=== PATIENT | female | born 1960 | race Caucasian/White ===

== ENCOUNTER 2019-10-10 00:55 | Inpatient (IN) | payer BC, OTHER ==
[~2019-10-10] VITALS: Ht 154.9 cm; Wt 50.0 kg
[2019-10-10] VITALS (12 sets, daily range): BP systolic 99–189; BP diastolic 65–107
[2019-10-10 01:26] LABS: BASOPHILS # (AUTO) 0.1 X10'3 (0-0.2); BASOPHILS % (AUTO) 0.9 % (0-1); EOSINOPHILS % (AUTO) 0.7 % (0-6); HEMATOCRIT 41.8 % (35.0-45.0); HEMOGLOBIN 14.3 g/dl (12.0-16.0); LYMPHOCYTES # (AUTO) 2.6 X10'3 (1.1-4.8); LYMPHOCYTES % (AUTO) 42.2 % (21-51); MEAN CORPUSCULAR HEMOGLOBIN 34.9 PG (27.0-31.0); MEAN CORPUSCULAR HGB CONC 34.3 g/dL (33.0-36.5); MEAN CORPUSCULAR VOLUME 101.8 FL (78-98); MEAN PLATELET VOLUME 8.6 FL (7.4-10.4); MONOCYTES # (AUTO) 0.5 X10'3 (0-0.9); MONOCYTES % (AUTO) 7.7 % (2-12); NEUTROPHILS % (AUTO) 48.5 % (42-75); PLATELET COUNT 140 X10'3 (140-440); RED CELL DISTRIBUTION WIDTH 12.6 % (11.5-14.5); WHITE BLOOD COUNT 6.1 X10'3 (4.5-11.0)
[2019-10-10 01:40] LABS: ALANINE AMINOTRANSFERASE 64 U/L (12-78); ALBUMIN 3.7 G/DL (3.4-5.0); ALBUMIN/GLOBULIN RATIO 0.9 (1.1-1.5); ALKALINE PHOSPHATASE 55 IU/L (46-116); ANION GAP 12 (8-16); ASPARTATE AMINO TRANSFERASE 149 U/L (10-37); BILIRUBIN,TOTAL 0.4 MG/DL (0.1-1.0); BLOOD UREA NITROGEN 10 MG/DL (7-18); BUN/CREATININE RATIO 16.1 (6.6-38.0); CALCIUM 8.8 MG/DL (8.5-10.1); CHLORIDE 104 MMOL/L (99-107); CREATININE 0.62 MG/DL (0.40-0.90); GLUCOSE 111 MG/DL (70-104); POTASSIUM 3.6 MMOL/L (3.5-5.1); SODIUM 141 MMOL/L (135-145); TOTAL CARBON DIOXIDE 24.8 MMOL/L (24-32); TOTAL PROTEIN 7.7 G/DL (6.4-8.2); eGFR > 90 ML/MIN
[2019-10-10] MEDS ORDERED: NO HOME MEDS (01:49)
[2019-10-10] MEDS ORDERED: HYDROcodone/acetaminophen 5mg/325mg tablet PO ONE (01:55)
[2019-10-10] MEDS ORDERED: magnesium hydroxide 30ml (MOM) UD suspension PO PRN (03:35)
[2019-10-10] MEDS ORDERED: acetaminophen 325mg tablet PO PRN (03:35)
[2019-10-10] MEDS ORDERED: ondansetron/PF 4mg/2ml inj IV PRN (03:35)
[2019-10-10] MEDS ORDERED: mag hydrox/Alum hydrox/simeth 30ml oral suspension PO PRN (03:35)
--- NOTE | 2019-10-10 03:55 | NUR ---
I have received report from ALYCE Ayala (ED) and had the opportunity to ask questions. Pt will be transferred to 8951U.
[2019-10-10 04:04] LABS: HEMOGLOBIN A1C 5.3 % (4.5-6.2)
--- NOTE | 2019-10-10 04:05 | NUR ---
Pt arrived to unit via w/c, accompanied by a nurse; belongings are with the pt; A/O x 4. Placed on Tele monitor 41. MRSA nasal swab, 2 RN skin assessment, and DART done.
--- NOTE | 2019-10-10 06:34 | NUR ---
Patient in room PCU 3013. I have received report from Stephanie MEAD and had the opportunity to ask questions and assume patient care.
--- NOTE | 2019-10-10 06:35 | NUR ---
Problems reprioritized. Patient report given, questions answered & plan of care reviewed with ALYCE Leija.
[2019-10-10] MEDS: HYDROcodone/acetaminophen 5mg/325mg tablet PO PRN ×2 (07:19→12:22)
[2019-10-10] MEDS ORDERED: heparin, porcine 5000 units/ml vial SQ SCH (08:00)
[2019-10-10] MEDS ORDERED: LIDOcaine 5% patch TP SCH (08:00)
[2019-10-10] MEDS ORDERED: aminophylline 250mg/10ml inj. IV PRN (09:00)
[2019-10-10] MEDS ORDERED: metoprolol tartrate 1mg/ml inj IV PRN (09:00)
[2019-10-10] MEDS ORDERED: regadenoson 0.4mg/5ml syringe IV ONE (09:00)
[2019-10-10] MEDS ORDERED: nitroGLYCERIN 0.4mg SUBLingual tab SL PRN (09:00)
--- NOTE | 2019-10-10 16:20 | NUR ---
Pt remained stable. IV d/c ed Cath intact and no s/s of complications. All discharge instructions given. Pt z
--- NOTE | 2019-10-10 16:20 | NUR ---
Continued All discharge instructions given and pt stated understanding. Pt taken by wheelchair to waiting in private vehicle.
== END 2019-10-10 16:48 | disposition home or self-care (01) | DRG 313 ==
LOC: ER 00:56 → ED HOLD 03:33 → PCU 3S 04:16
PROVIDERS: ADMIT Internal Medicine; ATTEND Family Medicine
DX: R07.89 Other chest pain (principal); E78.00 Pure hypercholesterolemia, unspecified; F41.9 Anxiety disorder, unspecified; I10 Essential (primary) hypertension; F32.9 Major depressive disorder, single episode, unspecified; I08.1 Rheumatic disorders of both mitral and tricuspid valves; R94.31 Abnormal electrocardiogram [ECG] [EKG]; F17.200 Nicotine dependence, unspecified, uncomplicated; Z98.891 History of uterine scar from previous surgery; Z82.49 Family history of ischemic heart disease and other diseases of the circulatory system; Z56.0 Unemployment, unspecified
CPT/HCPCS: 36415; 71045; 78452; 80053; 83036; 84484; 85025; 87081; 93005; 93017; 93306; 99285; A9500; G0378; J1644; J2785

== ENCOUNTER 2019-11-15 07:52 | Inpatient (IN) | payer OTHER ==
[~2019-11-15] VITALS: Ht 154.9 cm; Wt 58.9 kg
[2019-11-15] VITALS (19 sets, daily range): BP systolic 87–143; BP diastolic 50–85
[~2019-11-15 07:52] MED LIST: NO HOME MEDS
[2019-11-15 08:15] LABS: LYMPHOCYTES # (AUTO) 3.1 X10'3 (1.1-4.8); MONOCYTES # (AUTO) 1.6 X10'3 (0-0.9); MONOCYTES % (AUTO) 9.5 % (2-12); RED BLOOD COUNT 0.97 X10'6 (4.20-5.60)
--- NOTE | 2019-11-15 08:15 | NUR ---
Reports black stool,Dr. Lopez aware. Addendum: 11/15/19 at 1028 by ASTNICHOLE Reports black stool x 3 days. made aware.
[2019-11-15 08:17] LABS: BASOPHILS % (AUTO) 0.2 % (0-1); EOSINOPHILS % (AUTO) 0.2 % (0-6); MEAN CORPUSCULAR HEMOGLOBIN 33.8 PG (27.0-31.0); MEAN CORPUSCULAR VOLUME 105.7 FL (78-98); MEAN PLATELET VOLUME 8.5 FL (7.4-10.4); NEUTROPHILS # (AUTO) 12.4 X10'3 (1.8-7.7); NEUTROPHILS % (AUTO) 72.1 % (42-75); PLATELET COUNT 258 X10'3 (140-440); RED CELL DISTRIBUTION WIDTH 12.5 % (11.5-14.5); WHITE BLOOD COUNT 17.2 X10'3 (4.5-11.0)
[2019-11-15 08:22] LABS: HEMATOCRIT 10.3 % (35.0-45.0); HEMOGLOBIN 3.3 g/dl (12.0-16.0)
[2019-11-15 08:25] LABS: ALANINE AMINOTRANSFERASE 28 U/L (12-78); ALBUMIN 1.6 G/DL (3.4-5.0); ALBUMIN/GLOBULIN RATIO 0.4 (1.1-1.5); ALKALINE PHOSPHATASE 53 IU/L (46-116); ANION GAP 7 (8-16); ASPARTATE AMINO TRANSFERASE 34 U/L (10-37); BILIRUBIN,TOTAL 0.2 MG/DL (0.1-1.0); BLOOD UREA NITROGEN 13 MG/DL (7-18); BUN/CREATININE RATIO 17.8 (6.6-38.0); CALCIUM 7.5 MG/DL (8.5-10.1); CHLORIDE 103 MMOL/L (99-107); CREATININE 0.73 MG/DL (0.40-0.90); GLUCOSE 154 MG/DL (70-104); LIPASE 118 U/L (73-393); SODIUM 135 MMOL/L (135-145); TOTAL CARBON DIOXIDE 24.6 MMOL/L (24-32); TOTAL PROTEIN 5.3 G/DL (6.4-8.2); eGFR 82 ML/MIN
[2019-11-15 08:26] LABS: POTASSIUM 3.4 MMOL/L (3.5-5.1)
[2019-11-15] MEDS ORDERED: normal saline 1000ML IV soln IVB ONE (08:30)
[2019-11-15] MEDS ORDERED: pantoprazole 40 MG vial IV ONE (08:40)
[2019-11-15 08:52] LABS: NUCLEATED RED BLOOD CELLS 2 /100WBC (0-0); TOTAL CELLS COUNTED 100
[2019-11-15 08:53] LABS: PLATELET ESTIMATE NORMAL; POLYCHROMASIA 2+
[2019-11-15] MEDS: pantoprazole 40MG/NS 100ML BAG 100 ML IV SCH ×3 (09:01→20:20)
[2019-11-15 09:03] LABS: URINE AMPHETAMINE SCREEN NEGATIVE (Neg); URINE BARBITUATE SCREEN NEGATIVE (Neg); URINE BENZODIAZEPINES SCREEN POSITIVE (Neg); URINE CANNABINOID SCREEN POSITIVE (Neg); URINE COCAINE SCREEN NEGATIVE (Neg); URINE METHADONE SCREEN NEGATIVE (Neg); URINE OPIATE SCREEN NEGATIVE (Neg); URINE PHENCYCLIDINE SCREEN NEGATIVE (Neg)
--- NOTE | 2019-11-15 09:04 | NUR ---
PRBC unavailable at this time,will take 20 more minutes per blood bank.Consent signed by Physician and patient.
[2019-11-15 09:05] LABS: PARTIAL THROMBOPLASTIN TIME 24 SECONDS (22-32)
--- NOTE | 2019-11-15 09:19 | NUR ---
patient requesting prn for back pain 03/20,Dr. Lopez made aware,Verval order received,fentanyl 50mcg stat.Order noted,patient aware.
[2019-11-15] MEDS ORDERED: fentaNYL/PF 50MCG/1 ML 2ML syringe IV STA (09:20)
[2019-11-15] MEDS ORDERED: ATOR10TA87 PO (09:33)
[2019-11-15] MEDS ORDERED: CYCL-394 PO (09:33)
[2019-11-15] MEDS ORDERED: GABA-534 PO (09:33)
--- NOTE | 2019-11-15 09:50 | NUR ---
spoke to Dr. Lopez,ok'd to run 2 PRBC at the same time if SBP <100,BP 91/54.
--- NOTE | 2019-11-15 09:55 | NUR ---
1st PRBC started.Instructed patient to report adverse reactions,s/s discussed.
--- NOTE | 2019-11-15 10:11 | NUR ---
#2 PRBC started.No reported adverse reaction at this time.
[2019-11-15 10:41] LABS: OCCULT BLOOD STOOL POSITIVE (Neg)
[2019-11-15] MEDS ORDERED: ondansetron/PF 4mg/2ml inj IV PRN (11:15)
[2019-11-15] MEDS ORDERED: mag hydrox/Alum hydrox/simeth 30ml oral suspension PO PRN (11:15)
[2019-11-15] MEDS ORDERED: acetaminophen 325mg tablet PO PRN (11:15)
[2019-11-15] MEDS ORDERED: magnesium hydroxide 30ml (MOM) UD suspension PO PRN (11:15)
--- NOTE | 2019-11-15 11:43 | NUR ---
Received report from ALYCE Hassan from ED. Awaiting patient arrival to room 3021N.
--- NOTE | 2019-11-15 11:50 | NUR ---
Patient arrived to room 3027A via gurney and used slideboard to transfer patient from gurglennie to bed. 2 units of PRBCs were still transfusing from the ED, and Protonix gtt was running as well. Patient vital signs are BP 109/70, 97% on room air, HR 103, RR 16, temp 99.5F, pain 9/10. Bed locked and lowered, nonskid socks on, call light in reach, and in no acute distress. Will continue to monitor.
--- NOTE | 2019-11-15 12:35 | NUR ---
Patient left for GI lab.
[2019-11-15] MEDS ORDERED: MIDAZolam 5mg/5ml vial ONE (12:49)
[2019-11-15] MEDS ORDERED: fentaNYL/PF 50MCG/1 ML 2ML syringe ONE (12:49)
[2019-11-15] MEDS ORDERED: LIDOcaine Viscous 15ml cup ONE (12:50)
[2019-11-15] MEDS ORDERED: epiNEPHrine 0.1mg/ml 10ml syringe ONE (13:07)
--- NOTE | 2019-11-15 15:04 | NUR ---
Orders put in for clear liquid diet per Dr. Baires.
--- NOTE | 2019-11-15 15:04 | NUR ---
Patient back from GI lab
[2019-11-15] MEDS: normal saline 1000ml 1,000 ML IV SCH (15:10)
[2019-11-15 15:30] LABS: HEMATOCRIT 23.3 % (35.0-45.0); HEMOGLOBIN 7.7 g/dl (12.0-16.0); MEAN CORPUSCULAR HEMOGLOBIN 31.2 PG (27.0-31.0); MEAN CORPUSCULAR HGB CONC 33.2 g/dL (33.0-36.5); MEAN PLATELET VOLUME 8.6 FL (7.4-10.4); PLATELET COUNT 195 X10'3 (140-440); RED BLOOD COUNT 2.48 X10'6 (4.20-5.60); RED CELL DISTRIBUTION WIDTH 14.8 % (11.5-14.5)
--- NOTE | 2019-11-15 16:07 | NUR ---
Paged Dr. Payton regarding pain medication for patient. PAGER ID: [phone] MESSAGE: [id number]. Noemi Liu. Patient requesting something for pain. Thank you. Jaqueline MEAD x [phone]
[2019-11-15 17:20] LABS: MEAN CORPUSCULAR HEMOGLOBIN 31.1 PG (27.0-31.0); MEAN CORPUSCULAR HGB CONC 33.4 g/dL (33.0-36.5); MEAN CORPUSCULAR VOLUME 93.3 FL (78-98); MEAN PLATELET VOLUME 8.5 FL (7.4-10.4); PLATELET COUNT 189 X10'3 (140-440); RED BLOOD COUNT 2.26 X10'6 (4.20-5.60)
[2019-11-15 17:22] LABS: HEMATOCRIT 21.1 % (35.0-45.0)
--- NOTE | 2019-11-15 17:25 | NUR ---
Paged Dr. Payton regarding critical H&H values. PAGER ID: [phone] MESSAGE: [phone]. Noemi Liu. Critical result of Hgb 7.0, Hct 21.1. Thank you. Jaqueline MEAD x [phone]
--- NOTE | 2019-11-15 18:27 | NUR ---
Patient in room PCU 3027. I have received report from ALYCE Parsons and had the opportunity to ask questions and assume patient care.
--- NOTE | 2019-11-15 18:35 | NUR ---
Problems reprioritized. Patient report given, questions answered & plan of care reviewed with ALYCE Cherry. Patient stable at transfer of care.
[2019-11-15] MEDS: HYDROcodone/acetaminophen 5mg/325mg tablet PO PRN (20:11)
[2019-11-15] MEDS: gabapentin 400mg capsule PO SCH (20:20)
[2019-11-15] MEDS ORDERED: cyclobenzaprine 10mg tablet PO SCH (21:00)
[2019-11-15 23:08] LABS: HEMATOCRIT 25.6 % (35.0-45.0); HEMOGLOBIN 8.7 g/dl (12.0-16.0); MEAN CORPUSCULAR HEMOGLOBIN 32.2 PG (27.0-31.0); MEAN CORPUSCULAR HGB CONC 34.1 g/dL (33.0-36.5); MEAN CORPUSCULAR VOLUME 94.5 FL (78-98); MEAN PLATELET VOLUME 8.5 FL (7.4-10.4); PLATELET COUNT 190 X10'3 (140-440); RED BLOOD COUNT 2.71 X10'6 (4.20-5.60); RED CELL DISTRIBUTION WIDTH 14.9 % (11.5-14.5)
[2019-11-16] MEDS: normal saline 1000ml 1,000 ML IV SCH ×4 (00:59→21:53)
[2019-11-16] MEDS: pantoprazole 40MG/NS 100ML BAG 100 ML IV SCH ×5 (01:01→21:48)
[2019-11-16 02:00] VITALS: BP 124/72
[2019-11-16] MEDS: HYDROcodone/acetaminophen 5mg/325mg tablet PO PRN ×4 (02:11→20:22)
[2019-11-16 06:00] VITALS: BP 106/66
[2019-11-16 06:19] LABS: BASOPHILS % (AUTO) 0.1 % (0-1); EOSINOPHILS % (AUTO) 0.3 % (0-6); HEMATOCRIT 25.4 % (35.0-45.0); HEMOGLOBIN 8.7 g/dl (12.0-16.0); LYMPHOCYTES # (AUTO) 1.3 X10'3 (1.1-4.8); LYMPHOCYTES % (AUTO) 9.9 % (21-51); MEAN CORPUSCULAR HEMOGLOBIN 32.8 PG (27.0-31.0); MEAN CORPUSCULAR HGB CONC 34.2 g/dL (33.0-36.5); MEAN CORPUSCULAR VOLUME 95.9 FL (78-98); MEAN PLATELET VOLUME 8.7 FL (7.4-10.4); MONOCYTES # (AUTO) 1.4 X10'3 (0-0.9); MONOCYTES % (AUTO) 10.4 % (2-12); NEUTROPHILS # (AUTO) 10.8 X10'3 (1.8-7.7); NEUTROPHILS % (AUTO) 79.3 % (42-75); PLATELET COUNT 191 X10'3 (140-440); RED BLOOD COUNT 2.65 X10'6 (4.20-5.60); RED CELL DISTRIBUTION WIDTH 15.2 % (11.5-14.5); WHITE BLOOD COUNT 13.6 X10'3 (4.5-11.0)
[2019-11-16 06:39] LABS: ALBUMIN 1.6 G/DL (3.4-5.0); ANION GAP 10 (8-16); BLOOD UREA NITROGEN 8 MG/DL (7-18); BUN/CREATININE RATIO 15.4 (6.6-38.0); CALCIUM 6.7 MG/DL (8.5-10.1); CHLORIDE 108 MMOL/L (99-107); CREATININE 0.52 MG/DL (0.40-0.90); GLUCOSE 101 MG/DL (70-104); POTASSIUM 3.8 MMOL/L (3.5-5.1); SODIUM 137 MMOL/L (135-145); TOTAL CARBON DIOXIDE 18.6 MMOL/L (24-32); eGFR > 90 ML/MIN
--- NOTE | 2019-11-16 06:43 | NUR ---
Problems reprioritized. Patient report given, questions answered & plan of care reviewed with ALYCE MCKEON.
[2019-11-16] MEDS: atorvastatin 10mg tablet PO SCH (08:33)
[2019-11-16] MEDS: gabapentin 400mg capsule PO SCH ×3 (08:33→20:21)
[2019-11-16 11:00] VITALS: BP 99/62
[2019-11-16 11:15] LABS: HEMATOCRIT 27.8 % (35.0-45.0); HEMOGLOBIN 9.4 g/dl (12.0-16.0); MEAN CORPUSCULAR HEMOGLOBIN 32.1 PG (27.0-31.0); MEAN CORPUSCULAR HGB CONC 33.8 g/dL (33.0-36.5); MEAN PLATELET VOLUME 8.3 FL (7.4-10.4); PLATELET COUNT 225 X10'3 (140-440); RED BLOOD COUNT 2.92 X10'6 (4.20-5.60); RED CELL DISTRIBUTION WIDTH 15.2 % (11.5-14.5); WHITE BLOOD COUNT 15.2 X10'3 (4.5-11.0)
[2019-11-16] MEDS: CefTRIAXone/D5W-Rocephin 1gm 50 ML IV SCH (14:11)
[2019-11-16] MEDS: duloxetine 20mg capsule.DR PO SCH (14:13)
[2019-11-16] MEDS: morphine 2 MG/ML inj. syringe IV PRN (15:51)
[2019-11-16 16:00] VITALS: BP 111/69
[2019-11-16 17:08] LABS: HEMATOCRIT 26.1 % (35.0-45.0); HEMOGLOBIN 8.8 g/dl (12.0-16.0); MEAN CORPUSCULAR HEMOGLOBIN 32.2 PG (27.0-31.0); MEAN CORPUSCULAR HGB CONC 33.6 g/dL (33.0-36.5); MEAN CORPUSCULAR VOLUME 95.7 FL (78-98); MEAN PLATELET VOLUME 8.3 FL (7.4-10.4); PLATELET COUNT 222 X10'3 (140-440); RED BLOOD COUNT 2.73 X10'6 (4.20-5.60); RED CELL DISTRIBUTION WIDTH 14.9 % (11.5-14.5); WHITE BLOOD COUNT 12.6 X10'3 (4.5-11.0)
[2019-11-16 18:00] VITALS: BP 125/74
--- NOTE | 2019-11-16 18:31 | NUR ---
Patient in room PCU 3027. I have received report from Yola MEAD and had the opportunity to ask questions and assume patient care.
--- NOTE | 2019-11-16 18:40 | NUR ---
Problems reprioritized. Patient report given, questions answered & plan of care reviewed with ALYCE Ervin.
[2019-11-16] MEDS ORDERED: cyclobenzaprine 10mg tablet PO SCH (21:00)
[2019-11-16 22:00] VITALS: BP 117/68
[2019-11-17] MEDS: pantoprazole 40MG/NS 100ML BAG 100 ML IV SCH ×5 (01:03→20:09)
[2019-11-17] MEDS: HYDROcodone/acetaminophen 5mg/325mg tablet PO PRN ×6 (01:03→23:40)
[2019-11-17 02:00] VITALS: BP 110/71
[2019-11-17 05:13] LABS: ALBUMIN 1.7 G/DL (3.4-5.0); ANION GAP 8 (8-16); BASOPHILS % (AUTO) 0.1 % (0-1); BLOOD UREA NITROGEN 3 MG/DL (7-18); BUN/CREATININE RATIO 4.8 (6.6-38.0); CHLORIDE 104 MMOL/L (99-107); CREATININE 0.63 MG/DL (0.40-0.90); EOSINOPHILS # (AUTO) 0.1 X10'3 (0-0.9); EOSINOPHILS % (AUTO) 0.6 % (0-6); GLUCOSE 94 MG/DL (70-104); HEMATOCRIT 26.4 % (35.0-45.0); LYMPHOCYTES # (AUTO) 1.2 X10'3 (1.1-4.8); LYMPHOCYTES % (AUTO) 9.3 % (21-51); MEAN CORPUSCULAR HEMOGLOBIN 32.7 PG (27.0-31.0); MEAN CORPUSCULAR HGB CONC 34.2 g/dL (33.0-36.5); MEAN CORPUSCULAR VOLUME 95.5 FL (78-98); MEAN PLATELET VOLUME 8.4 FL (7.4-10.4); MONOCYTES # (AUTO) 1.2 X10'3 (0-0.9); MONOCYTES % (AUTO) 9.5 % (2-12); NEUTROPHILS # (AUTO) 10.1 X10'3 (1.8-7.7); NEUTROPHILS % (AUTO) 80.5 % (42-75); PLATELET COUNT 251 X10'3 (140-440); POTASSIUM 3.6 MMOL/L (3.5-5.1); RED BLOOD COUNT 2.77 X10'6 (4.20-5.60); RED CELL DISTRIBUTION WIDTH 15.3 % (11.5-14.5); SODIUM 134 MMOL/L (135-145); TOTAL CARBON DIOXIDE 22.1 MMOL/L (24-32); WHITE BLOOD COUNT 12.5 X10'3 (4.5-11.0); eGFR > 90 ML/MIN
[2019-11-17 06:00] VITALS: BP 124/78
--- NOTE | 2019-11-17 06:15 | NUR ---
Problems reprioritized. Patient report given, questions answered & plan of care reviewed with Yola MEAD.
--- NOTE | 2019-11-17 06:30 | NUR ---
Patient in room PCU 3027. I have received report from ALYCE Ervin, and had the opportunity to ask questions and assume patient care.
[2019-11-17] MEDS: normal saline 1000ml 1,000 ML IV SCH ×2 (08:45→23:42)
[2019-11-17] MEDS: gabapentin 400mg capsule PO SCH ×3 (08:47→20:09)
[2019-11-17] MEDS: atorvastatin 10mg tablet PO SCH (08:47)
[2019-11-17] MEDS: duloxetine 20mg capsule.DR PO SCH (08:47)
[2019-11-17] MEDS: CefTRIAXone/D5W-Rocephin 1gm 50 ML IV SCH ×2 (08:48→13:33)
[2019-11-17 11:00] VITALS: BP 137/80
[2019-11-17 12:05] LABS: HEMATOCRIT 27.4 % (35.0-45.0); HEMOGLOBIN 9.3 g/dl (12.0-16.0); MEAN CORPUSCULAR HEMOGLOBIN 32.4 PG (27.0-31.0); MEAN CORPUSCULAR HGB CONC 33.9 g/dL (33.0-36.5); MEAN CORPUSCULAR VOLUME 95.6 FL (78-98); MEAN PLATELET VOLUME 8.6 FL (7.4-10.4); PLATELET COUNT 263 X10'3 (140-440); RED BLOOD COUNT 2.86 X10'6 (4.20-5.60); RED CELL DISTRIBUTION WIDTH 15.1 % (11.5-14.5); WHITE BLOOD COUNT 11.5 X10'3 (4.5-11.0)
[2019-11-17] MEDS: morphine 2 MG/ML inj. syringe IV PRN (12:26)
[2019-11-17 15:00] VITALS: BP 129/72
[2019-11-17 18:00] VITALS: BP 135/77
--- NOTE | 2019-11-17 18:25 | NUR ---
Patient in room PCU 3027. I have received report from ALYCE Gan and had the opportunity to ask questions and assume patient care.
[2019-11-17 18:30] LABS: HEMATOCRIT 28.3 % (35.0-45.0); HEMOGLOBIN 9.5 g/dl (12.0-16.0); MEAN CORPUSCULAR HEMOGLOBIN 32.3 PG (27.0-31.0); MEAN CORPUSCULAR HGB CONC 33.6 g/dL (33.0-36.5); MEAN CORPUSCULAR VOLUME 96.2 FL (78-98); MEAN PLATELET VOLUME 8.2 FL (7.4-10.4); PLATELET COUNT 291 X10'3 (140-440); RED BLOOD COUNT 2.94 X10'6 (4.20-5.60); RED CELL DISTRIBUTION WIDTH 14.7 % (11.5-14.5); WHITE BLOOD COUNT 11.7 X10'3 (4.5-11.0)
--- NOTE | 2019-11-17 18:36 | NUR ---
Problems reprioritized. Patient report given, questions answered & plan of care reviewed with ALYCE Hill.
--- NOTE | 2019-11-17 18:41 | NUR ---
Patient in room PCU 3027. I have received report from Elvia MEAD and had the opportunity to ask questions and assume patient care.
[2019-11-17] MEDS: lactobacillus rhamnosus 10,000 MMU CELLS/CAPSULE PO SCH (20:09)
[2019-11-17 22:00] VITALS: BP 146/84
[2019-11-17 23:54] LABS: HEMATOCRIT 27.1 % (35.0-45.0); HEMOGLOBIN 9.3 g/dl (12.0-16.0); MEAN CORPUSCULAR HGB CONC 34.2 g/dL (33.0-36.5); MEAN CORPUSCULAR VOLUME 96.5 FL (78-98); MEAN PLATELET VOLUME 8.4 FL (7.4-10.4); PLATELET COUNT 287 X10'3 (140-440); RED BLOOD COUNT 2.81 X10'6 (4.20-5.60); RED CELL DISTRIBUTION WIDTH 15.2 % (11.5-14.5); WHITE BLOOD COUNT 10.3 X10'3 (4.5-11.0)
[2019-11-18] MEDS: pantoprazole 40MG/NS 100ML BAG 100 ML IV SCH ×2 (01:01→05:29)
[2019-11-18] MEDS: morphine 2 MG/ML inj. syringe IV PRN (01:08)
[2019-11-18 02:00] VITALS: BP 132/71
[2019-11-18] MEDS: HYDROcodone/acetaminophen 5mg/325mg tablet PO PRN ×2 (05:13→09:53)
--- NOTE | 2019-11-18 05:26 | NUR ---
I agree with all documentation and medication administration performed by orienting registered nurse Antonina.
[2019-11-18 05:43] LABS: BASOPHILS % (AUTO) 0.3 % (0-1); EOSINOPHILS # (AUTO) 0.1 X10'3 (0-0.9); EOSINOPHILS % (AUTO) 0.7 % (0-6); HEMATOCRIT 28.4 % (35.0-45.0); HEMOGLOBIN 9.6 g/dl (12.0-16.0); LYMPHOCYTES # (AUTO) 0.9 X10'3 (1.1-4.8); LYMPHOCYTES % (AUTO) 8.7 % (21-51); MEAN CORPUSCULAR HEMOGLOBIN 32.7 PG (27.0-31.0); MEAN CORPUSCULAR HGB CONC 33.9 g/dL (33.0-36.5); MEAN CORPUSCULAR VOLUME 96.4 FL (78-98); MEAN PLATELET VOLUME 8.7 FL (7.4-10.4); MONOCYTES # (AUTO) 0.7 X10'3 (0-0.9); MONOCYTES % (AUTO) 6.8 % (2-12); NEUTROPHILS # (AUTO) 9.1 X10'3 (1.8-7.7); NEUTROPHILS % (AUTO) 83.5 % (42-75); PLATELET COUNT 304 X10'3 (140-440); RED BLOOD COUNT 2.94 X10'6 (4.20-5.60); RED CELL DISTRIBUTION WIDTH 15.1 % (11.5-14.5); WHITE BLOOD COUNT 10.9 X10'3 (4.5-11.0)
[2019-11-18 05:52] LABS: ALBUMIN 1.7 G/DL (3.4-5.0); ANION GAP 7 (8-16); BLOOD UREA NITROGEN 4 MG/DL (7-18); BUN/CREATININE RATIO 6.7 (6.6-38.0); CALCIUM 7.2 MG/DL (8.5-10.1); CHLORIDE 104 MMOL/L (99-107); GLUCOSE 89 MG/DL (70-104); POTASSIUM 3.3 MMOL/L (3.5-5.1); SODIUM 134 MMOL/L (135-145); TOTAL CARBON DIOXIDE 23.1 MMOL/L (24-32); eGFR > 90 ML/MIN
--- NOTE | 2019-11-18 06:18 | NUR ---
Problems reprioritized. Patient report given, questions answered & plan of care reviewed with Navya MEAD.
--- NOTE | 2019-11-18 06:19 | NUR ---
Problems reprioritized. Patient report given, questions answered & plan of care reviewed with ALYCE Mendosa.
[2019-11-18 06:30] VITALS: BP 145/90
--- NOTE | 2019-11-18 06:35 | NUR ---
Patient in room PCU 3020O. I have received report from Crystal MEAD and had the opportunity to ask questions and assume patient care.
[2019-11-18] MEDS: duloxetine 20mg capsule.DR PO SCH (07:51)
[2019-11-18] MEDS: lactobacillus rhamnosus 10,000 MMU CELLS/CAPSULE PO SCH (07:51)
[2019-11-18] MEDS: gabapentin 400mg capsule PO SCH ×2 (07:54→13:13)
[2019-11-18] MEDS: atorvastatin 10mg tablet PO SCH (07:54)
[2019-11-18] MEDS ORDERED: pantoprazole 40mg Tablet.DR PO ONE (09:45)
[2019-11-18] MEDS ORDERED: magnesium Cl slow-release 64mg tablet PO PRN (10:15)
[2019-11-18] MEDS ORDERED: potassium CL 10mEq/100ml bag 100 ML IV PRN (10:15)
[2019-11-18] MEDS ORDERED: magnesium 4gm in 100ml NS 100 ML IV PRN (10:15)
[2019-11-18] MEDS ORDERED: potassium Cl 20 mEq SR tablet PO PRN ×2 (10:15)
[2019-11-18] MEDS ORDERED: TRAM50TA2 PO (10:26)
[2019-11-18] MEDS ORDERED: PANT-47 PO (10:26)
--- NOTE | 2019-11-18 12:14 | NUR ---
Janisd PAGER ID: [phone] MESSAGE: Navya renu [phone]. RE Hipolito Liu 3027A. FYI that patient's temperature is slowly rising again- 99.2, 99.4 and now 99.9. Will continue with discharge if I do not hear back from by 12:45. Thank you!
--- NOTE | 2019-11-18 14:18 | NUR ---
Per MD, patient stable for discharge home. Discharge packet completed and provided to patient. Patient educated about further s/sx to look for in GI bleeds, proper diet, new medications, etc. Patient also educated on eating food over the next couple days that are higher in potassium, as her potassium was slightly 3.3. Home medications picked up from hospital pharmacy. All belongings sent with patient. Patient escorted from hospital with by RN and driven home by spouse via private vehicle.
[2019-11-18] MEDS ORDERED: CEPH500C5 PO (15:01)
== END 2019-11-18 14:18 | disposition home or self-care (01) | DRG 377 ==
LOC: ER 07:52 → ED HOLD 11:13 → PCU 3S 11:50
PROVIDERS: ADMIT Family Medicine; ATTEND Family Medicine
PROC: 0DB68ZX Excision of Stomach, Via Natural or Artificial Opening Endoscopic, Diagnostic (ICD-10-PCS; principal; 2019-11-15)
PROC: 0W3P8ZZ Control Bleeding in Gastrointestinal Tract, Via Natural or Artificial Opening Endoscopic (ICD-10-PCS; 2019-11-15)
PROC: 30233N1 Transfusion of Nonautologous Red Blood Cells into Peripheral Vein, Percutaneous Approach (ICD-10-PCS; 2019-11-15)
DX: K25.4 Chronic or unspecified gastric ulcer with hemorrhage (principal); R57.8 Other shock; D62 Acute posthemorrhagic anemia; D72.829 Elevated white blood cell count, unspecified; E78.00 Pure hypercholesterolemia, unspecified; F17.210 Nicotine dependence, cigarettes, uncomplicated; I10 Essential (primary) hypertension; K22.2 Esophageal obstruction; K44.9 Diaphragmatic hernia without obstruction or gangrene; M79.7 Fibromyalgia; F12.90 Cannabis use, unspecified, uncomplicated; F41.9 Anxiety disorder, unspecified; Z79.899 Other long term (current) drug therapy
CPT/HCPCS: 36415; 36430; 43227; 43236; 43239; 43255; 71045; 76700; 80048; 80053; 80305; 82272; 83605; 83690; 84484; 85025; 85027; 85610; 85730; 86885; 86900; 86901; 86920; 87040; 87081; 93005; 96374; 99153; 99291; C9113; G0378; J0171; J0696; J2250; J2270; J3010; J7030; J7040; P9016

== ENCOUNTER 2020-09-27 12:06 | Emergency (ER) | payer BC, MEDICAID ==
[~2020-09-27] VITALS: Ht 154.9 cm; Wt 47.4 kg
[~2020-09-27 12:06] MED LIST changes: +ATOR10TA87 PO; +CEPH-585 PO; +GABA-534 PO; -NO HOME MEDS; +PANT-47 PO
[2020-09-27] MEDS ORDERED: TRAZ150T78 PO (14:07)
[2020-09-27] MEDS ORDERED: DOCU-22 PO (14:09)
[2020-09-27] MEDS ORDERED: CYCL5TAB79 PO (14:09)
[2020-09-27] MEDS ORDERED: BUSP10TA3 PO (14:09)
[2020-09-27 14:14] LABS: BASOPHILS % (AUTO) 0.4 % (0-1); EOSINOPHILS # (AUTO) 0.1 X10'3 (0-0.9); HEMATOCRIT 37.5 % (35.0-45.0); HEMOGLOBIN 12.5 g/dl (12.0-16.0); LYMPHOCYTES # (AUTO) 1.8 X10'3 (1.1-4.8); LYMPHOCYTES % (AUTO) 31.8 % (21-51); MEAN CORPUSCULAR HEMOGLOBIN 33.5 PG (27.0-31.0); MEAN CORPUSCULAR HGB CONC 33.3 g/dL (33.0-36.5); MEAN CORPUSCULAR VOLUME 100.5 FL (78-98); MEAN PLATELET VOLUME 8.8 FL (7.4-10.4); MONOCYTES # (AUTO) 0.4 X10'3 (0-0.9); MONOCYTES % (AUTO) 6.3 % (2-12); NEUTROPHILS # (AUTO) 3.4 X10'3 (1.8-7.7); NEUTROPHILS % (AUTO) 60.5 % (42-75); PLATELET COUNT 156 X10'3 (140-440); RED BLOOD COUNT 3.74 X10'6 (4.20-5.60); RED CELL DISTRIBUTION WIDTH 13.1 % (11.5-14.5); WHITE BLOOD COUNT 5.7 X10'3 (4.5-11.0)
[2020-09-27 14:22] LABS: PARTIAL THROMBOPLASTIN TIME 24 SECONDS (22-32)
[2020-09-27 14:28] LABS: ALANINE AMINOTRANSFERASE 44 U/L (12-78); ALBUMIN 3.7 G/DL (3.4-5.0); ALBUMIN/GLOBULIN RATIO 1.1 (1.1-1.5); ALKALINE PHOSPHATASE 53 IU/L (46-116); ANION GAP 8 (8-16); ASPARTATE AMINO TRANSFERASE 41 U/L (10-37); BILIRUBIN,TOTAL 0.5 MG/DL (0.1-1.0); BLOOD UREA NITROGEN 8 MG/DL (7-18); BUN/CREATININE RATIO 14.5 (6.6-38.0); CALCIUM 8.6 MG/DL (8.5-10.1); CHLORIDE 108 MMOL/L (99-107); CREATININE 0.55 MG/DL (0.40-0.90); GLUCOSE 106 MG/DL (70-104); POTASSIUM 4.1 MMOL/L (3.5-5.1); SODIUM 143 MMOL/L (135-145); TOTAL CARBON DIOXIDE 26.8 MMOL/L (24-32); TOTAL PROTEIN 7.1 G/DL (6.4-8.2); eGFR > 90 ML/MIN
[2020-09-27 15:38] VITALS: BP 133/86
== END 2020-09-27 15:43 | disposition home or self-care (01) ==
LOC: ER 12:07
DX: S01.01XA Laceration without foreign body of scalp, initial encounter (principal); E78.00 Pure hypercholesterolemia, unspecified; F41.9 Anxiety disorder, unspecified; R79.1 Abnormal coagulation profile; F12.90 Cannabis use, unspecified, uncomplicated; Z72.89 Other problems related to lifestyle; Z98.890 Other specified postprocedural states; Z56.0 Unemployment, unspecified; Z79.899 Other long term (current) drug therapy; W12.XXXA Fall on and from scaffolding, initial encounter; Y93.89 Activity, other specified; Y92.89 Other specified places as the place of occurrence of the external cause; Y99.8 Other external cause status
CPT/HCPCS: 36415; 70450; 80053; 85025; 85610; 85730; 93005; 99285

== ENCOUNTER 2023-01-08 08:17 | Emergency (ER) | payer BC ==
[~2023-01-08] VITALS: Ht 154.9 cm; Wt 50.9 kg
[~2023-01-08 08:17] MED LIST changes: +BUSP10TA3 PO; -CEPH-585 PO; +CYCL5TAB79 PO; +DOCU-22 PO; -GABA-534 PO; +GABA-535 PO; +TRAZ150T78 PO
[2023-01-08 08:30] VITALS: TEMP 98.1
[2023-01-08] MEDS ORDERED: ondansetron/PF 4mg/2ml inj IV ONE (09:10)
[2023-01-08] MEDS ORDERED: morphine 4 MG/ML inj SYRINge IV ONE (09:10)
[2023-01-08 09:45] LABS: EOSINOPHILS % (AUTO) 0.5 % (0-6); HEMATOCRIT 41.6 % (35.0-45.0); HEMOGLOBIN 14.6 g/dl (12.0-16.0); LYMPHOCYTES # (AUTO) 2.2 X10'3 (1.1-4.8); LYMPHOCYTES % (AUTO) 49.8 % (21-51); MEAN CORPUSCULAR HEMOGLOBIN 35.2 PG (27.0-31.0); MEAN CORPUSCULAR HGB CONC 35.1 g/dL (33.0-36.5); MEAN CORPUSCULAR VOLUME 100.5 FL (78-98); MEAN PLATELET VOLUME 8.1 FL (7.4-10.4); MONOCYTES # (AUTO) 0.4 X10'3 (0-0.9); MONOCYTES % (AUTO) 8.1 % (2-12); NEUTROPHILS # (AUTO) 1.8 X10'3 (1.8-7.7); NEUTROPHILS % (AUTO) 40.6 % (42-75); PLATELET COUNT 152 X10'3 (140-440); RED BLOOD COUNT 4.14 X10'6 (4.20-5.60); RED CELL DISTRIBUTION WIDTH 12.5 % (11.5-14.5); WHITE BLOOD COUNT 4.4 X10'3 (4.5-11.0)
[2023-01-08 10:09] LABS: ALANINE AMINOTRANSFERASE 76 U/L (12-78); ALBUMIN 3.7 G/DL (3.4-5.0); ALKALINE PHOSPHATASE 39 IU/L (46-116); ANION GAP 14 (8-16); ASPARTATE AMINO TRANSFERASE 102 U/L (10-37); BILIRUBIN,TOTAL 0.3 MG/DL (0.1-1.0); BLOOD UREA NITROGEN 10 MG/DL (7-18); CALCIUM 8.7 MG/DL (8.5-10.1); CHLORIDE 108 MMOL/L (99-107); GLUCOSE 122 MG/DL (70-104); POTASSIUM 3.9 MMOL/L (3.5-5.1); SODIUM 145 MMOL/L (135-145); TOTAL CARBON DIOXIDE 23.3 MMOL/L (24-32); TOTAL PROTEIN 7.4 G/DL (6.4-8.2); eGFR > 90 ML/MIN
[2023-01-08 10:15] LABS: LIPASE 116 U/L (73-393); MAGNESIUM 2.1 MG/DL (1.5-2.4)
[2023-01-08] MEDS ORDERED: normal saline 1000ml 1,000 ML IV ONE ×2 (10:35→13:00)
[2023-01-08] MEDS ORDERED: iohexol 300mg/ml 100ml inj. ONE (10:52)
[2023-01-08 10:55] LABS: COLOR,URINE STRAW (Yellow); GLUCOSE, URINE NEGATIVE (Neg); KETONES,URINE NEGATIVE (Neg); LEUKOCYTE ESTERASE ,URINE NEGATIVE (Neg); NITRITES, URINE NEGATIVE (Neg); OCCULT BLOOD,URINE TRACE-INTACT (Neg); PH,URINE 5.5 (4.8-8.0); PROTEIN,URINE NEGATIVE (Neg); UROBILINOGEN,URINE 0.2 E.U/dL (0.2-1.0)
[2023-01-08 10:59] LABS: CLARITY,URINE SLIGHTLY CLOUDY (Clear); UA COLLECTION TYPE CLN CATCH MIDSTREAM
[2023-01-08 11:09] LABS: BACTERIA,URINE 1+ /HPF (Neg); MUCUS STRANDS NONE SEEN /LPF (Neg); RBC,URINE 0-2 /HPF (0-2); SQUAMOUS EPITHELIAL CELL,UR FEW /LPF (FEW); WBC,URINE 0-4 /HPF (0-4)
[2023-01-08 11:28] LABS: C-REACTIVE PROTEIN < 0.05 MG/DL (0.0-0.5)
[2023-01-08] MEDS ORDERED: cyclobenzaprine 10mg tablet PO ONE (11:35)
[2023-01-08 13:14] VITALS: BP 113/80; PULSE 68; RESP 18; O2SAT 98
[2023-01-08] MEDS ORDERED: CYCL-1 PO (13:42)
== END 2023-01-08 13:49 | disposition home or self-care (01) ==
LOC: ER 08:18
DX: R10.13 Epigastric pain (principal); M54.41 Lumbago with sciatica, right side; M54.59 Other low back pain; M54.42 Lumbago with sciatica, left side; E78.00 Pure hypercholesterolemia, unspecified; F12.10 Cannabis abuse, uncomplicated; Z56.0 Unemployment, unspecified; F41.9 Anxiety disorder, unspecified; Z98.890 Other specified postprocedural states; Z79.899 Other long term (current) drug therapy; Z79.1 Long term (current) use of non-steroidal anti-inflammatories (NSAID); Z79.2 Long term (current) use of antibiotics
CPT/HCPCS: 36415; 71045; 74177; 80053; 81001; 83690; 83735; 83880; 84145; 84484; 85025; 85651; 86140; 93005; 96374; 96375; 99285; J2270; J2405; J3490; J7030; Q9967

== ENCOUNTER 2024-02-03 13:50 | Emergency (ER) | payer BC ==
[~2024-02-03] VITALS: Ht 156.2 cm; Wt 56.4 kg
[~2024-02-03 13:50] MED LIST changes: +CYCL-1 PO
[2024-02-03 14:12] LABS: BASOPHILS % (AUTO) 0.5 % (0-1); EOSINOPHILS % (AUTO) 0.8 % (0-6); HEMATOCRIT 39.1 % (35.0-45.0); HEMOGLOBIN 13.5 g/dl (12.0-16.0); LYMPHOCYTES # (AUTO) 2.7 X10'3 (1.1-4.8); LYMPHOCYTES % (AUTO) 54.5 % (21-51); MEAN CORPUSCULAR HEMOGLOBIN 34.7 PG (27.0-31.0); MEAN CORPUSCULAR HGB CONC 34.6 g/dL (33.0-36.5); MEAN CORPUSCULAR VOLUME 100.1 FL (78-98); MEAN PLATELET VOLUME 8.8 FL (7.4-10.4); MONOCYTES # (AUTO) 0.4 X10'3 (0-0.9); MONOCYTES % (AUTO) 8.6 % (2-12); NEUTROPHILS # (AUTO) 1.7 X10'3 (1.8-7.7); NEUTROPHILS % (AUTO) 35.6 % (42-75); PLATELET COUNT 143 X10'3 (140-440); RED BLOOD COUNT 3.91 X10'6 (4.20-5.60); RED CELL DISTRIBUTION WIDTH 12.6 % (11.5-14.5); WHITE BLOOD COUNT 4.9 X10'3 (4.5-11.0)
[2024-02-03 14:30] LABS: ALBUMIN 3.6 G/DL (3.4-5.0); ANION GAP 9 (8-16); BLOOD UREA NITROGEN 7 MG/DL (7-18); CALCIUM 8.8 MG/DL (8.5-10.1); CHLORIDE 107 MMOL/L (99-107); GLUCOSE 123 MG/DL (70-104); POTASSIUM 3.9 MMOL/L (3.5-5.1); PRO BRAIN NATRIURETIC PEPTIDE 58 PG/ML (0-125); SODIUM 140 MMOL/L (135-145); eCRCL 64 ML/MIN; eGFR 85 ML/MIN
[2024-02-03 14:38] VITALS: TEMP 98.1
[2024-02-03] MEDS: sucralfate 1 gm tablet PO ONE (15:25)
[2024-02-03] MEDS: mag hydrox/Alum hydrox/simeth 30ml oral suspension PO ONE (15:25)
[2024-02-03] MEDS: pantoprazole 40mg Tablet.DR PO STA (15:25)
[2024-02-03] MEDS ORDERED: PANT-47 PO (16:37)
[2024-02-03 16:52] VITALS: BP 117/66; PULSE 78; RESP 12; O2SAT 94
== END 2024-02-03 16:55 | disposition home or self-care (01) ==
LOC: ER 13:51
DX: R07.89 Other chest pain (principal); R10.13 Epigastric pain; D75.89 Other specified diseases of blood and blood-forming organs; E78.00 Pure hypercholesterolemia, unspecified; F41.9 Anxiety disorder, unspecified; F17.200 Nicotine dependence, unspecified, uncomplicated; F12.90 Cannabis use, unspecified, uncomplicated; Z79.899 Other long term (current) drug therapy; Z98.890 Other specified postprocedural states
CPT/HCPCS: 36415; 71045; 80048; 83880; 84484; 85025; 93005; 99285